=== PATIENT | female | born 1995 ===

== ENCOUNTER 2020-08-19 16:06 | Emergency (ER) | payer OTHER ==
[~2020-08-19] VITALS: Ht 152.4 cm; Wt 49.9 kg
== END 2020-08-19 18:32 | disposition home or self-care (01) ==
LOC: ER 16:06
DX: S01.82XA Laceration with foreign body of other part of head, initial encounter (principal); S80.02XA Contusion of left knee, initial encounter; W18.09XA Striking against other object with subsequent fall, initial encounter; Y93.89 Activity, other specified; Y92.89 Other specified places as the place of occurrence of the external cause; Y99.8 Other external cause status

== ENCOUNTER 2020-08-24 10:31 | Emergency (ER) | payer OTHER ==
[~2020-08-24] VITALS: Ht 152.4 cm; Wt 47.6 kg
== END 2020-08-24 11:25 | disposition home or self-care (01) ==
LOC: ER 10:31
DX: S80.02XA Contusion of left knee, initial encounter (principal); W18.39XA Other fall on same level, initial encounter; Y93.89 Activity, other specified; Y92.098 Other place in other non-institutional residence as the place of occurrence of the external cause; Y99.8 Other external cause status

== ENCOUNTER 2020-08-28 13:31 | Emergency (ER) | payer OTHER ==
[~2020-08-28] VITALS: Ht 152.4 cm; Wt 47.6 kg
== END 2020-08-28 14:33 | disposition home or self-care (01) ==
LOC: ER 13:31
DX: Z48.02 Encounter for removal of sutures (principal)